=== PATIENT | female | born 1955 | race Caucasian/White ===

== ENCOUNTER 2018-08-03 08:03 | Outpatient (CLI) | payer BC | END 2018-08-03 08:04 | disposition home or self-care (01) | LOC: BICMAMMO 08:03 | PROVIDERS: ATTEND Family Medicine | DX: Z12.31 Encounter for screening mammogram for malignant neoplasm of breast (principal); Z80.3 Family history of malignant neoplasm of breast | CPT/HCPCS: 77063; 77067 ==

== ENCOUNTER 2019-08-04 08:00 | Outpatient (CLI) | payer BC ==
--- NOTE | 2019-08-04 08:37 | MMO ---
Bilateral MAMMO Bilat Screen [facility]. CLINICAL HISTORY: Patient is 63 years old and is seen for screening. The patient has the following family history of breast cancer: mother, at age 60; maternal grandmother and maternal grandmother, GREAT. The patient has no personal history of cancer. VIEWS: The views performed were: bilateral craniocaudal with tomosynthesis; bilateral mediolateral oblique with tomosynthesis; and bilateral exaggerated craniocaudal. FILMS COMPARED: The present examination has been compared to prior imaging studies performed at 05/07/2016, and at [facility] on 07/23/2017 and 08/03/2018. MAMMOGRAM FINDINGS: There are scattered fibroglandular densities. Finding 1: There is a new area of architectural distortion seen in the middle region of the right breast at 10 o'clock. Finding 2: There are benign appearing calcifications seen in both breasts. IMPRESSION: FINDING 1: NEW AREA OF ARCHITECTURAL DISTORTION IN THE RIGHT BREAST REQUIRES ADDITIONAL EVALUATION. AN ULTRASOUND EXAM IS RECOMMENDED IF NEEDED. ADDITIONAL IMAGING. FINDING 2: CALCIFICATIONS IN BOTH BREASTS ARE BENIGN. THE RESULTS OF THIS EXAM WERE SENT TO THE PATIENT. ACR BI-RADS Category 0 - Incomplete: Need additional imaging evaluation. [facility] will notify the patient of the need for additional imaging services. MAMMOGRAPHY NOTE: 1. A negative mammogram report should not delay a biopsy if a dominant of clinically suspicious mass is present. 2. Approximately 10% to 15% of breast cancers are not detected by mammography. 3. Adenosis and dense breasts may obscure an underlying neoplasm. Reported by: NIECY THAKUR MD Electonically Signed: [id number]
== END 2019-08-04 08:01 | disposition home or self-care (01) ==
LOC: BICMAMMO 08:00
PROVIDERS: ATTEND Family Medicine
DX: Z12.31 Encounter for screening mammogram for malignant neoplasm of breast (principal); Q83.9 Congenital malformation of breast, unspecified; Z80.3 Family history of malignant neoplasm of breast
CPT/HCPCS: 77063; 77067

== ENCOUNTER 2019-08-10 07:58 | Outpatient (CLI) | payer BC ==
--- NOTE | 2019-08-10 09:58 | ULT ---
LIMITED RIGHT BREAST ULTRASOUND: 08/10/2019 PROVIDED CLINICAL HISTORY: Architectural distortion. FINDINGS: Limited sonographic interrogation was performed of the right breast, in the expected location of the mammographic abnormality. In the expected location of the mammographic abnormality, there is no yin esponding sonographic finding. At the 11 o'clock position of the right breast, near the nipple, is a somewhat focal area of diminished echogenicity with a calcification at its superficial margin that p roduces shadowing. The visualized margins of this mass are somewhat well defined, given its small si ze. It measures about 5 mm. IMPRESSION: BI-RADS category 0-Incomplete, needs additional imaging evaluation. MRI of the breast is recommended for further evaluation of the area of architectural distortion seen mammographically, for which ther e is no definite sonographic correlate. MRI may also be useful in evaluating the nonspecific periare olar finding described at the 11 o'clock position of the right breast. POS: OFF
== END 2019-08-10 07:59 | disposition home or self-care (01) ==
LOC: BICULT 07:58
PROVIDERS: ATTEND Family Medicine
DX: N64.89 Other specified disorders of breast (principal)

== ENCOUNTER 2019-08-21 15:17 | Outpatient (CLI) | payer BC ==
--- NOTE | 2019-08-21 16:57 | MRI ---
EXAM: MRI of the breasts without and with contrast HISTORY: Architectural distortion in the right breast seen on mammography COMPARISON: Mammogram 08/04/2019; ultrasound 08/10/2019 TECHNIQUE: Multiplanar multisequence MR images were obtained of the breasts without and with IV contr ast. 3-D MIP reformats and contrast enhancement curves were generated on a [id number] workstation. FINDINGS: Heterogeneously dense breast parenchyma is seen. Mild background parenchymal enhancement is seen. No suspicious mass or abnormal enhancement is seen within either breast. No abnormality is seen at th e area of possible architectural distortion in the right breast on mammography. No axillary adenopathy is seen. No internal mammary lymph nodes are identified. The visualized liver is unremarkable. The visualized bones are unremarkable. IMPRESSION: BI-RADS Category 2-benign findings. Annual screening mammography is recommended.
== END 2019-08-21 15:18 | disposition home or self-care (01) ==
LOC: BICMRI 15:17
PROVIDERS: ATTEND Family Medicine
DX: R92.1 Mammographic calcification found on diagnostic imaging of breast (principal); R92.8 Other abnormal and inconclusive findings on diagnostic imaging of breast
CPT/HCPCS: 82565; A9577; C8908